=== PATIENT | male | born 1950 | race African-American/Black ===

== ENCOUNTER 2023-09-01 14:52 | Emergency (ER) | payer SELFPAY ==
[~2023-09-01] VITALS: Ht 175.3 cm; Wt 63.0 kg
[2023-09-01 14:54] VITALS: O2SAT 97
[2023-09-01 15:57] LABS: BASOPHILS % 1.3 % (0.0-2.0); DIFFERENTIAL COMMENT 0; EOSINOPHILS % 2.1 % (0.0-5.0); HEMATOCRIT. 41.4 % (42.0-52.0); HEMOGLOBIN. 14.2 g/dL (14.0-18.0); LYMPHOCYTES % 47.7 % (20.0-50.0); MEAN CORPUSCULAR HEMOGLOBIN 34.3 pg (28.0-32.0); MEAN CORPUSCULAR HGB CONC 34.3 g/dL (31.0-37.0); MEAN CORPUSCULAR VOLUME 99.9 fL (80.0-94.0); MEAN PLATELET VOLUME 9.3 fl (7.4-10.4); MONOCYTES % 6.1 % (2.0-8.0); NEUTROPHILS % 42.8 % (40.0-76.0); PLATELET 198 x1000/uL (130-400); RED BLOOD CELL COUNT 4.15 mill/uL (4.7-6.1); RED CELL DISTRIBUTION WIDTH 13.3 % (11.6-14.6); WHITE BLOOD COUNT 4.7 x1000/uL (4.5-11.0)
[2023-09-01 16:03] LABS: CHLORIDE 110 mEq/L (98-107); POTASSIUM 3.6 mEq/L (3.5-5.1); SODIUM 142 mEq/L (136-145)
[2023-09-01 16:04] LABS: CALCIUM 8.5 mg/dL (8.7-10.4); CARBON DIOXIDE 24 mEq/L (21-32)
[2023-09-01] MEDS: TETANUS, DIPHTHERIA, PERTUSSIS VAC/PF 0.5ML (>10YR OLD) IM ONE (16:04)
[2023-09-01 16:09] LABS: GLUCOSE 129 mg/dL (70-105); UREA NITROGEN BLOOD 7 mg/dL (9-23)
[2023-09-01 16:11] LABS: ALANINE AMINOTRANSFERASE 39 IU/L (10-49); ALBUMIN 4.2 g/dL (3.2-4.8); ASPARTATE AMINOTRANSFERASE 76 IU/L (<34); BILIRUBIN TOTAL 0.5 mg/dL (0.1-1.0); PROTEIN TOTAL 6.6 g/dL (6.0-8.3)
[2023-09-01 16:18] LABS: ETHANOL BLOOD 366 mg/dL (<10)
[2023-09-01] MEDS: ACETAMINOPHEN 325MG TABLET PO ONE (18:22)
[2023-09-01 18:37] VITALS: BP 131/78; PULSE 70; RESP 15; TEMP 98.2
== END 2023-09-01 18:44 | disposition home or self-care (01) ==
LOC: ER 14:52
DX: S00.81XA Abrasion of other part of head, initial encounter (principal); F10.129 Alcohol abuse with intoxication, unspecified; E11.9 Type 2 diabetes mellitus without complications; I10 Essential (primary) hypertension; R51.9 Headache, unspecified; W18.39XA Other fall on same level, initial encounter; Y93.89 Activity, other specified; Y92.89 Other specified places as the place of occurrence of the external cause; Y99.8 Other external cause status; Y90.8 Blood alcohol level of 240 mg/100 ml or more
CPT/HCPCS: 80053; 80320; 82962; 85025; 36415; 70450; 90715; 90471; 99291; Z7610 ×5; G0480

== ENCOUNTER 2024-01-08 12:23 | Emergency (ER) | payer MEDICARE, MEDICAID ==
[~2024-01-08] VITALS: Ht 180.3 cm; Wt 70.0 kg
[2024-01-08 12:26] VITALS: O2SAT 98
[2024-01-08] MEDS: TETANUS, DIPHTHERIA, PERTUSSIS VAC/PF 0.5ML (>10YR OLD) IM ONE (15:58)
[2024-01-08 16:18] VITALS: BP 138/87; PULSE 84; RESP 18; TEMP 36.50292; O2SAT 99
== END 2024-01-08 16:19 | disposition home or self-care (01) ==
LOC: ER 12:23
DX: E11.9 Type 2 diabetes mellitus without complications (principal); I10 Essential (primary) hypertension; Z88.5 Allergy status to narcotic agent; W01.0XXA Fall on same level from slipping, tripping and stumbling without subsequent striking against object, initial encounter; Y93.89 Activity, other specified; Y92.89 Other specified places as the place of occurrence of the external cause; Y99.8 Other external cause status
CPT/HCPCS: 70486; 73562; 82962; 90471; 90715; 99285; 99291

== ENCOUNTER 2024-05-06 17:43 | Emergency (ER) | payer MEDICARE, MEDICAID ==
[~2024-05-06] VITALS: Ht 182.9 cm; Wt 83.0 kg
[2024-05-06 17:55] VITALS: O2SAT 98
[2024-05-06 20:45] LABS: CLARITY URINE CLEAR (CLEAR); COLOR URINE YELLOW (YELLOW)
[2024-05-06 20:46] LABS: GLUCOSE URINE NEGATIVE (NEGATIVE); KETONES URINE NEGATIVE (NEGATIVE); LEUKOCYTE ESTERASE URINE NEGATIVE (NEGATIVE); NITRITE URINE NEGATIVE (NEGATIVE); OCCULT BLOOD URINE NEGATIVE (NEGATIVE); PH URINE 5.5 (4.5-8.0); PROTEIN URINE NEGATIVE (NEGATIVE); SPECIFIC GRAVITY URINE 1.004 (1.005-1.030); UROBILINOGEN URINE 0.2 E.U./dL (0.2-1.0)
[2024-05-06] MEDS: KETOROLAC 30MG/ML VIAL IM ONE (22:01)
[2024-05-06] MEDS: LIDOCAINE 5% PATCH TOP SCH (22:01)
[2024-05-06] MEDS ORDERED: NAPR220C61 MT (22:08)
[2024-05-06 23:00] VITALS: BP 180/93; PULSE 86; RESP 20; TEMP 36.83628; O2SAT 98
== END 2024-05-06 23:00 | disposition home or self-care (01) ==
LOC: ER 17:43
DX: M54.50 Low back pain, unspecified (principal); E11.9 Type 2 diabetes mellitus without complications; I10 Essential (primary) hypertension
CPT/HCPCS: 99283; 81003; 96372; J1885

== ENCOUNTER 2024-06-20 21:15 | Inpatient (IN) | payer MEDICARE, MEDICAID ==
[~2024-06-20] VITALS: Ht 198.1 cm; Wt 77.7 kg
[~2024-06-20 21:15] MED LIST: HYDR-4009 PO; KETO10TA2 MT; SENN-362 PO
[2024-06-20] MEDS ORDERED: NALOXONE HCL 0.4MG/ML 1ML VIAL IV PRN (22:15)
[2024-06-20] MEDS ORDERED: MAGNESIUM/ALUMINUM HYDROXIDE/SIMETHICONE 30ML UDC PO PRN (22:15)
[2024-06-20] MEDS: DEXT 5%/LACTATED RINGERS 1,000 ML IV SCH (22:54)
[2024-06-20] MEDS: MORPHINE SULFATE 2 MG/ML INJ (NOT FOR IM USE) IV PRN (22:58)
[2024-06-20 23:18] VITALS: BP 149/79; PULSE 73; RESP 18; TEMP 36.6
[2024-06-21] VITALS: BP 149/79; PULSE 73; RESP 18; TEMP 36.6; O2SAT 97
[2024-06-21 08:00] VITALS: BP 141/75; PULSE 76; RESP 17; TEMP 36.7; O2SAT 97
[2024-06-21] MEDS: AMLODIPINE 10MG TABLET PO SCH (08:17)
[2024-06-21] MEDS: HYDROCODONE/ACETAMINOPHEN 7.5/325MG TABLET PO PRN (08:17)
[2024-06-21 08:42] LABS: CHLORIDE 104 mEq/L (98-107); POTASSIUM 4.6 mEq/L (3.5-5.1); SODIUM 140 mEq/L (136-145)
[2024-06-21 08:43] LABS: CALCIUM 9.1 mg/dL (8.7-10.4); CARBON DIOXIDE 32 mEq/L (21-32)
[2024-06-21 08:48] LABS: CREATININE 0.9 mg/dL (0.6-1.3); UREA NITROGEN BLOOD 12 mg/dL (9-23)
[2024-06-21 08:50] LABS: ALANINE AMINOTRANSFERASE 12 IU/L (10-49); ALBUMIN 3.4 g/dL (3.2-4.8); ASPARTATE AMINOTRANSFERASE 13 IU/L (<34); BILIRUBIN TOTAL 0.6 mg/dL (0.1-1.0); PROTEIN TOTAL 5.8 g/dL (6.0-8.3)
[2024-06-21 09:01] LABS: HEPATITIS B SURFACE ANTIGEN NEGATIVE (Negative)
[2024-06-21 09:22] LABS: HEPATITIS C AB NON REACTIVE (Neg) (Negative)
[2024-06-21 09:47] LABS: GLUCOSE 165 mg/dL (70-105)
[2024-06-21 10:08] LABS: BASOPHILS % 0.4 % (0.0-2.0); DIFFERENTIAL COMMENT 0; EOSINOPHILS % 1.9 % (0.0-5.0); HEMATOCRIT. 39.8 % (42.0-52.0); HEMOGLOBIN. 13.3 g/dL (14.0-18.0); LYMPHOCYTES % 26.6 % (20.0-50.0); MEAN CORPUSCULAR HEMOGLOBIN 34.3 pg (28.0-32.0); MEAN CORPUSCULAR HGB CONC 33.4 g/dL (31.0-37.0); MEAN CORPUSCULAR VOLUME 102.5 fL (80.0-94.0); MEAN PLATELET VOLUME 10.8 fl (7.4-10.4); MONOCYTES % 12.9 % (2.0-8.0); NEUTROPHILS % 58.2 % (40.0-76.0); PLATELET 139 x1000/uL (130-400); RED BLOOD CELL COUNT 3.88 mill/uL (4.7-6.1); RED CELL DISTRIBUTION WIDTH 12.5 % (11.6-14.6); WHITE BLOOD COUNT 5.3 x1000/uL (4.5-11.0)
[2024-06-21 12:00] VITALS: BP 133/68; PULSE 80; RESP 18; TEMP 36.4; O2SAT 99
[2024-06-21] MEDS: ACETAMINOPHEN 325MG TABLET PO PRN (14:02)
[2024-06-21 16:00] VITALS: BP 139/72; PULSE 79; RESP 18; TEMP 36.2; O2SAT 100
[2024-06-21 20:00] VITALS: BP 142/70; PULSE 88; RESP 19; TEMP 37.1; O2SAT 94
[2024-06-21] MEDS: FAMOTIDINE 20MG TABLET PO SCH (20:57)
[2024-06-22 04:00] VITALS: BP 142/84; PULSE 86; RESP 20; TEMP 37.3; O2SAT 99
[2024-06-22 08:00] VITALS: BP 149/82; PULSE 84; RESP 18; TEMP 36.3; O2SAT 97
[2024-06-22 12:00] VITALS: BP 140/80; PULSE 80; RESP 18; TEMP 36.4; O2SAT 98
[2024-06-22 16:00] VITALS: BP 138/79; PULSE 84; RESP 18; TEMP 36.4; O2SAT 99
[2024-06-22 20:00] VITALS: BP 153/69; PULSE 77; RESP 18; TEMP 36.8; O2SAT 99
[2024-06-23] MEDS: CLONIDINE 0.1MG TABLET PO PRN (07:37)
[2024-06-23 08:00] VITALS: BP 172/98; PULSE 101; RESP 17; TEMP 36.6; O2SAT 95
[2024-06-23 08:11] VITALS: BP 150/70
[2024-06-23 20:00] VITALS: BP 126/65; PULSE 73; RESP 19; TEMP 36.3; O2SAT 100
[2024-06-24 08:00] VITALS: BP 140/75; PULSE 75; RESP 20; TEMP 36.3; O2SAT 99
[2024-06-24] MEDS: BACLOFEN 10MG TABLET PO SCH ×2 (11:10→21:59)
[2024-06-24 20:00] VITALS: BP 139/93; PULSE 93; RESP 18; TEMP 37.2; O2SAT 98
[2024-06-25 08:00] VITALS: BP 145/87; PULSE 86; RESP 19; TEMP 36.2; O2SAT 99
[2024-06-25] MEDS: BACLOFEN 10MG TABLET PO SCH (16:27)
[2024-06-25 20:00] VITALS: BP 145/76; PULSE 81; RESP 16; TEMP 36.8; O2SAT 99
[2024-06-26] MEDS: HYDROCODONE/ACETAMINOPHEN 7.5/325MG TABLET PO NR (00:14)
[2024-06-26 08:00] VITALS: BP 126/77; PULSE 83; RESP 18; TEMP 36; O2SAT 97
[2024-06-26 08:30] VITALS: BP 178/96; PULSE 123; O2SAT 97
[2024-06-26] MEDS ORDERED: NALOXONE HCL 0.4MG/ML VIAL IV PRN (08:30)
[2024-06-26] MEDS: HYDROCODONE/ACETAMINOPHEN 5/325MG TABLET PO PRN (08:32)
[2024-06-26 09:46] VITALS: BP 132/74; PULSE 88; O2SAT 95
[2024-06-26] MEDS ORDERED: LACTULOSE 20G/30ML UDC PO PRN (15:00)
[2024-06-26] MEDS: LACTULOSE 20G/30ML UDC PO NR (15:34)
[2024-06-26 19:46] VITALS: BP 137/84; PULSE 97; RESP 19; TEMP 36.4; O2SAT 98
[2024-06-27 08:00] VITALS: BP 138/78; PULSE 97; RESP 18; TEMP 36.3; O2SAT 95
[2024-06-27 18:31] LABS: CHLORIDE 104 mEq/L (98-107); POTASSIUM 4.8 mEq/L (3.5-5.1); SODIUM 138 mEq/L (136-145)
[2024-06-27 18:32] LABS: CALCIUM 9.5 mg/dL (8.7-10.4); CARBON DIOXIDE 27 mEq/L (21-32)
[2024-06-27 18:37] LABS: GLUCOSE 200 mg/dL (70-105); UREA NITROGEN BLOOD 13 mg/dL (9-23)
[2024-06-27 18:39] LABS: ALANINE AMINOTRANSFERASE 18 IU/L (10-49); ASPARTATE AMINOTRANSFERASE 19 IU/L (<34); BILIRUBIN TOTAL 0.4 mg/dL (0.1-1.0)
[2024-06-27 18:40] LABS: PROTEIN TOTAL 6.7 g/dL (6.0-8.3)
[2024-06-27 20:00] VITALS: BP 140/73; PULSE 92; RESP 18; TEMP 36.7; O2SAT 98
[2024-06-27 22:13] LABS: BASOPHILS % 0.9 % (0.0-2.0); EOSINOPHILS % 0.8 % (0.0-5.0); HEMATOCRIT. 37.8 % (42.0-52.0); HEMOGLOBIN. 13.2 g/dL (14.0-18.0); LYMPHOCYTES % 18.6 % (20.0-50.0); MEAN CORPUSCULAR HEMOGLOBIN 34.6 pg (28.0-32.0); MEAN CORPUSCULAR HGB CONC 34.8 g/dL (31.0-37.0); MEAN CORPUSCULAR VOLUME 99.4 fL (80.0-94.0); NEUTROPHILS % 71.7 % (40.0-76.0); RED BLOOD CELL COUNT 3.81 mill/uL (4.7-6.1); RED CELL DISTRIBUTION WIDTH 12.4 % (11.6-14.6); WHITE BLOOD COUNT 7.5 x1000/uL (4.5-11.0)
[2024-06-27 22:17] LABS: DIFFERENTIAL COMMENT 1
[2024-06-27 23:23] LABS: MEAN PLATELET VOLUME 9.9 fl (7.4-10.4); PLATELET 219 x1000/uL (130-400)
[2024-06-28 08:00] VITALS: BP 157/72; PULSE 95; RESP 18; TEMP 36.3; O2SAT 96
[2024-06-28 20:00] VITALS: BP 141/62; PULSE 59; RESP 19; TEMP 36.3; O2SAT 98
[2024-06-29 08:00] VITALS: BP 145/83; PULSE 68; RESP 18; TEMP 36.2; O2SAT 97
[2024-06-29 20:00] VITALS: BP 118/74; PULSE 90; RESP 19; TEMP 36.9; O2SAT 96
[2024-06-30 07:50] VITALS: BP 135/82; PULSE 80; RESP 18; TEMP 36.4; O2SAT 99
[2024-06-30] MEDS: DOCUSATE SODIUM 100MG CAPSULE PO PRN (08:40)
[2024-06-30] MEDS: LACTULOSE 20G/30ML UDC PO PRN ×2 (08:40→15:03)
[2024-06-30 20:00] VITALS: BP 141/80; PULSE 88; RESP 17; TEMP 36.6; O2SAT 99
[2024-07-01 08:00] VITALS: BP 127/84; PULSE 75; RESP 18; TEMP 36.2; O2SAT 98
[2024-07-01 20:00] VITALS: BP 120/79; PULSE 98; RESP 18; TEMP 36.7; O2SAT 98
[2024-07-02 08:00] VITALS: BP 145/78; PULSE 87; RESP 18; TEMP 36.1; O2SAT 100
[2024-07-02] MEDS: HYDROCODONE/ACETAMINOPHEN 5/325MG TABLET PO PRN (13:49)
[2024-07-02 20:00] VITALS: BP 133/77; PULSE 91; RESP 18; TEMP 38.1; O2SAT 98
[2024-07-03 08:00] VITALS: BP 151/78; PULSE 80; RESP 17; TEMP 36.3; O2SAT 98
[2024-07-03 20:00] VITALS: BP 124/62; PULSE 94; RESP 16; TEMP 35.7; O2SAT 98
[2024-07-04 08:00] VITALS: BP 122/74; PULSE 82; RESP 19; TEMP 36.2; O2SAT 100
[2024-07-04] MEDS ORDERED: NALOXONE HCL 0.4MG/ML VIAL IV PRN (17:15)
[2024-07-04 20:00] VITALS: BP 136/79; PULSE 102; RESP 18; TEMP 36.9; O2SAT 99
[2024-07-04] MEDS: PNEUMOCOCCAL 20-VAL CONJ-DIP CRM 0.5ML IM ONE (22:05)
[2024-07-04] MEDS: INFLUENZA VACCINE 05/PF 0.5 ML SYRINGE IM ONE (23:05)
[2024-07-05 08:00] VITALS: BP 144/71; PULSE 58; RESP 18; TEMP 35.6; O2SAT 96
[2024-07-05 12:29] VITALS: BP 135/70; PULSE 60; TEMP 98.1; O2SAT 98
[2024-07-05] MEDS ORDERED: BACL-141 PO (12:29)
[2024-07-05] MEDS ORDERED: TOPUD PO (12:29)
[2024-07-05] MEDS ORDERED: AMLO10TA80 PO (12:29)
[2024-07-05 13:03] VITALS: BP 135/70; PULSE 60; RESP 20
== END 2024-07-05 15:43 | DRG 551 ==
LOC: UNDOADMIN 21:42
PROVIDERS: ADMIT Psychiatry & Neurology Neurology; ATTEND Internal Medicine
DX: M48.02 Spinal stenosis, cervical region (principal); G82.50 Quadriplegia, unspecified; S06.5X0A Traumatic subdural hemorrhage without loss of consciousness, initial encounter; M47.16 Other spondylosis with myelopathy, lumbar region; M47.12 Other spondylosis with myelopathy, cervical region; M50.00 Cervical disc disorder with myelopathy, unspecified cervical region; M48.061 Spinal stenosis, lumbar region without neurogenic claudication; R56.9 Unspecified convulsions; M47.816 Spondylosis without myelopathy or radiculopathy, lumbar region; I10 Essential (primary) hypertension; D53.9 Nutritional anemia, unspecified; E53.8 Deficiency of other specified B group vitamins; E78.00 Pure hypercholesterolemia, unspecified; F10.10 Alcohol abuse, uncomplicated; F12.10 Cannabis abuse, uncomplicated; F14.10 Cocaine abuse, uncomplicated; G62.9 Polyneuropathy, unspecified; R29.6 Repeated falls; H26.9 Unspecified cataract; F14.129 Cocaine abuse with intoxication, unspecified; Z60.2 Problems related to living alone; R53.1 Weakness; R06.00 Dyspnea, unspecified; W19.XXXA Unspecified fall, initial encounter; Z85.46 Personal history of malignant neoplasm of prostate; Z91.81 History of falling; Z98.1 Arthrodesis status; Y93.89 Activity, other specified; Y92.89 Other specified places as the place of occurrence of the external cause; Y99.8 Other external cause status
CPT/HCPCS: 36415; 80053; 85025; 86705; 87340; 90686; 90732; 92523; 92610; 97110; 97116; 97162; 97166; 97530; 97535; 97542; A6261; J2270; J7121

== ENCOUNTER 2025-04-02 18:17 | Inpatient (IN) | payer MEDICARE, MEDICAID ==
[~2025-04-02] VITALS: Ht 182.9 cm; Wt 68.0 kg
[~2025-04-02 18:17] MED LIST changes: +AMLO10TA80 PO; +BACL-141 PO; -HYDR-4009 PO; -KETO10TA2 MT
[2025-04-02] MEDS: MORPHINE SULFATE 4 MG/ML INJ (FOR IV/IM USE) IM ONE (20:02)
[2025-04-02] MEDS ORDERED: ONDANSETRON HCL 4MG/2ML INJ IV ONE (21:15)
[2025-04-02] MEDS: PROPOFOL 200MG/20ML VIAL IV ONE ×2 (21:15→22:23)
[2025-04-02 21:52] LABS: BASOPHILS % 0.7 % (0.0-2.0); EOSINOPHILS % 0.4 % (0.0-5.0); HEMATOCRIT. 40.7 % (42.0-52.0); HEMOGLOBIN. 13.4 g/dL (14.0-18.0); LYMPHOCYTES % 9.5 % (20.0-50.0); MEAN PLATELET VOLUME 9.2 fl (7.4-10.4); MONOCYTES % 5.8 % (2.0-8.0); NEUTROPHILS % 83.6 % (40.0-76.0); PLATELET 208 x1000/uL (130-400); RED BLOOD CELL COUNT 3.99 mill/uL (4.7-6.1); RED CELL DISTRIBUTION WIDTH 13.1 % (11.6-14.6)
[2025-04-02 22:02] LABS: CREATININE 0.8 mg/dL (0.6-1.3); UREA NITROGEN BLOOD 5 mg/dL (9-23)
[2025-04-02 22:03] LABS: ETHANOL BLOOD 189 mg/dL (<10)
[2025-04-02] MEDS: MORPHINE SULFATE 2 MG/ML INJ (NOT FOR IM USE) IV ONE (22:03)
[2025-04-02 22:04] LABS: ASPARTATE AMINOTRANSFERASE 18 IU/L (<34); BILIRUBIN TOTAL 0.3 mg/dL (0.1-1.0)
[2025-04-02 22:05] LABS: PROTEIN TOTAL 6.7 g/dL (6.0-8.3)
[2025-04-02] MEDS ORDERED: MORPHINE SULFATE 2 MG/ML INJ (NOT FOR IM USE) IV ONE (22:30)
[2025-04-02 22:31] VITALS: O2SAT 99
[2025-04-02] MEDS ORDERED: KETOROLAC 30MG/ML VIAL IV ONE (23:30)
[2025-04-03 02:00] VITALS: BP 132/90; PULSE 87; RESP 17; TEMP 36.696
[2025-04-03] MEDS ORDERED: ONDANSETRON HCL 4MG/2ML INJ IV PRN (02:45)
[2025-04-03] MEDS ORDERED: ACETAMINOPHEN 325MG TABLET PO PRN ×2 (02:45)
[2025-04-03] MEDS ORDERED: LORAZEPAM 0.5MG TABLET PO PRN (02:45)
[2025-04-03] MEDS ORDERED: LORAZEPAM 2MG/ML UD SYRINGE IV PRN ×2 (02:45)
[2025-04-03] MEDS ORDERED: MORPHINE SULFATE 2 MG/ML INJ (NOT FOR IM USE) IV NR (03:00)
[2025-04-03] MEDS: MORPHINE SULFATE 4 MG/ML INJ (FOR IV/IM USE) IV NR (03:39)
[2025-04-03 05:01] LABS: CLARITY URINE CLEAR (CLEAR); COLOR URINE YELLOW (YELLOW); GLUCOSE URINE 1+ (NEGATIVE); KETONES URINE TRACE (NEGATIVE); LEUKOCYTE ESTERASE URINE NEGATIVE (NEGATIVE); NITRITE URINE NEGATIVE (NEGATIVE); OCCULT BLOOD URINE NEGATIVE (NEGATIVE); PH URINE 5.0 (4.5-8.0); PROTEIN URINE NEGATIVE (NEGATIVE); SPECIFIC GRAVITY URINE 1.021 (1.005-1.030); UROBILINOGEN URINE 1.0 E.U./dL (0.2-1.0)
[2025-04-03 05:11] LABS: BACTERIA URINE TRACE; RBC URINE 0-2 /hpf (0-2); SQUAMOUS EPITHELIAL CELL URINE 1+ /lpf (RARE/1+); WBC URINE 0-2 /hpf (0-2)
[2025-04-03 05:34] LABS: *AMPHETAMINES SCREEN URINE NEGATIVE (NEGATIVE); *BARBITURATES SCREEN URINE NEGATIVE (NEGATIVE); *BENZODIAZEPINES SCREEN URINE NEGATIVE (NEGATIVE)
[2025-04-03 05:35] LABS: *COCAINE SCREEN URINE NEGATIVE (NEGATIVE); CANNABINOID URINE SCREEN NEGATIVE (NEGATIVE); ECSTASY MDMA SCREEN URINE NEGATIVE (NEGATIVE); METHADONE URINE SCREEN NEGATIVE (NEGATIVE); OPIATES URINE SCREEN PRESUMPTIVE POSITIVE (NEGATIVE); PHENCYCLIDINE URINE SCREEN NEGATIVE (NEGATIVE)
[2025-04-03] MEDS ORDERED: DEXTROSE 50% WATER 50ML SYRINGE IV PRN (07:30)
[2025-04-03] MEDS: INSULIN LISPRO 100 UNITS/ML SUBCUT SCH (07:50)
[2025-04-03 08:00] VITALS: BP 156/82; PULSE 89; RESP 17; TEMP 36.5; O2SAT 100
[2025-04-03] MEDS: MULTIVITAMINS,THER W-MINERALS TABLET PO SCH (08:11)
[2025-04-03] MEDS: ENOXAPARIN 40MG/0.4ML SYR SUBCUT SCH (08:12)
[2025-04-03] MEDS: AMLODIPINE 10MG TABLET PO SCH (11:34)
[2025-04-03 12:00] VITALS: BP 177/91; PULSE 85; RESP 18; O2SAT 100
[2025-04-03] MEDS: BLOOD SUGAR DIAGNOSTIC STRIP TEST SCH (12:12)
[2025-04-03] MEDS: CLONIDINE 0.1MG TABLET PO PRN (12:27)
[2025-04-03] MEDS: HYDROCODONE/ACETAMINOPHEN 10/325MG TABLET PO PRN (13:50)
[2025-04-03 20:00] VITALS: BP 134/68; PULSE 86; RESP 19; TEMP 36.8; O2SAT 99
[2025-04-03] MEDS: BACLOFEN 10MG TABLET PO SCH (20:52)
[2025-04-04] VITALS: BP 132/70; PULSE 88; RESP 18; TEMP 36.3; O2SAT 98
[2025-04-04 04:00] VITALS: BP 141/80; PULSE 77; RESP 18; TEMP 37.9; O2SAT 100
[2025-04-04 07:15] LABS: T4 FREE 0.99 ng/dL (0.89-1.76)
[2025-04-04 08:00] VITALS: BP 145/74; PULSE 73; RESP 16; TEMP 36.6; O2SAT 100
[2025-04-04] MEDS ORDERED: HYDR-4009 PO (11:15)
[2025-04-04] MEDS ORDERED: HYDR-4009 MT (11:19)
[2025-04-04] MEDS: LACTULOSE 20G/30ML UDC PO PRN (11:19)
[2025-04-04 12:00] VITALS: BP 154/74; PULSE 82; RESP 18; TEMP 36.5; O2SAT 100
[2025-04-04 14:01] VITALS: BP 154/74; PULSE 82; RESP 18; TEMP 97.7
[2025-04-04 16:00] VITALS: BP 147/79; PULSE 84; RESP 18; TEMP 36.7; O2SAT 100
== END 2025-04-04 16:40 | disposition home or self-care (01) | DRG 563 ==
LOC: ER 18:17 → 6EST 23:24 → EDBEDREQSVC 23:26 → EDBEDREQTM 23:26 → EDBEDREQ 23:26 → ENRESERV 23:55
PROVIDERS: ADMIT Student in an Organized Health Care Education/Training Program; ATTEND Student in an Organized Health Care Education/Training Program
PROC: 0RSJXZZ Reposition Right Shoulder Joint, External Approach (ICD-10-PCS; principal; 2025-04-02)
DX: S43.014A Anterior dislocation of right humerus, initial encounter (principal); Z59.00 Homelessness unspecified; E11.9 Type 2 diabetes mellitus without complications; F10.129 Alcohol abuse with intoxication, unspecified; I10 Essential (primary) hypertension; Y90.9 Presence of alcohol in blood, level not specified; F17.200 Nicotine dependence, unspecified, uncomplicated; W01.0XXA Fall on same level from slipping, tripping and stumbling without subsequent striking against object, initial encounter; Y93.89 Activity, other specified; Y92.89 Other specified places as the place of occurrence of the external cause; Y99.8 Other external cause status
CPT/HCPCS: 36415; 73030; 80053; 80305; 80320; 81003; 82962; 84439; 84443; 85025; 99285; A4606; J1650; J1815; J2270; J2704; G0480

== ENCOUNTER 2025-04-15 14:37 | Emergency (ER) | payer MEDICARE, MEDICAID ==
[~2025-04-15] VITALS: Ht 177.8 cm; Wt 64.0 kg
[~2025-04-15 14:37] MED LIST changes: +HYDR-4009 MT
[2025-04-15 14:39] VITALS: TEMP 98; O2SAT 98
[2025-04-15 17:28] VITALS: BP 143/76; PULSE 90; RESP 18; O2SAT 98
== END 2025-04-15 17:29 | disposition home or self-care (01) ==
LOC: ER 14:37
DX: S09.90XA Unspecified injury of head, initial encounter (principal); M25.511 Pain in right shoulder; E11.9 Type 2 diabetes mellitus without complications; F10.20 Alcohol dependence, uncomplicated; W01.0XXA Fall on same level from slipping, tripping and stumbling without subsequent striking against object, initial encounter; Y93.89 Activity, other specified; Y92.89 Other specified places as the place of occurrence of the external cause; Y99.8 Other external cause status
CPT/HCPCS: 99284

== ENCOUNTER 2025-04-19 01:10 | Emergency (ER) | payer MEDICARE, MEDICAID ==
[~2025-04-19] VITALS: Ht 177.8 cm; Wt 77.0 kg
[2025-04-19 01:17] VITALS: TEMP 98.5; O2SAT 100
[2025-04-19] MEDS: KETOROLAC 30MG/ML VIAL IM ONE (02:22)
[2025-04-19] MEDS ORDERED: NAPR-1176 MT (02:46)
[2025-04-19 03:30] VITALS: BP 139/80; PULSE 88; RESP 12; O2SAT 95
== END 2025-04-19 03:30 | disposition home or self-care (01) ==
LOC: ER 01:10
DX: S40.011A Contusion of right shoulder, initial encounter (principal); F10.90 Alcohol use, unspecified, uncomplicated; Z79.1 Long term (current) use of non-steroidal anti-inflammatories (NSAID); Y09 Assault by unspecified means; Y93.89 Activity, other specified; Y92.89 Other specified places as the place of occurrence of the external cause; Y99.8 Other external cause status; Y90.9 Presence of alcohol in blood, level not specified
CPT/HCPCS: 99284; 71045; 73030; 96372; J1885